=== PATIENT | female | born 1965 | race Caucasian/White ===

== ENCOUNTER → 2016-12-09 13:48 | Outpatient (CLI) | payer OTHER ==
[2016-02-21 05:47] VITALS: BMI 37.5
[~2016-12-09 13:48] MED LIST: ASPIRIN81 MG PO; OMEPRAZOLE20 M1 PO
== END | disposition home or self-care (01) ==
LOC: D.US 13:48
DX: E04.1 Nontoxic single thyroid nodule (principal)

== ENCOUNTER → 2016-12-17 09:41 | Outpatient (CLI) | payer OTHER ==
[2016-02-21 05:47] VITALS: BMI 37.5
== END | disposition home or self-care (01) ==
LOC: D.US 09:41
DX: E04.1 Nontoxic single thyroid nodule (principal)